=== PATIENT | female | born 1935 | race Caucasian/White ===

== ENCOUNTER 2020-03-20 07:28 | Day surgery (SDC) | payer MEDICARE ==
[2020-03-17 13:25] VITALS: BMI 25.7
[~2020-03-20 07:28] MED LIST: Fluorouracil 100 MG, Enoxaparin Sodium 25 MG, EPINEPHrine 0.3 MG in Ophthalmic Irrigati... IRR SCH
[2020-03-20] MEDS ORDERED: Cyclopentolate 1% Opth Drop 2 ML BOT ONE (07:46)
[2020-03-20] MEDS ORDERED: Phenylephrine 2.5% Ophth Soln 5 ML BOT ONE (07:46)
[2020-03-20] MEDS ORDERED: Fentanyl 100 MCG/2 ML VIAL ONE (09:05)
[2020-03-20] MEDS ORDERED: PROPOFOL 200 MG/20 ML VIAL ONE (09:22)
[2020-03-20] MEDS ORDERED: Triamcinolone 40 MG/ML VIAL ONE (09:22)
[2020-03-20] MEDS ORDERED: Enoxaparin Sodium 30 MG/0.3 ML SYRINGE ONE (09:22)
[2020-03-20] MEDS ORDERED: Indocyanine Green 25 MG/10 ML VIAL ONE (09:22)
[2020-03-20] MEDS ORDERED: Maxitrol 0.1% Opth Oint 3.5 GM TUBE ONE (09:22)
[2020-03-20] MEDS ORDERED: Lidocaine 4% PF 5 ML AMP ONE (09:22)
[2020-03-20] MEDS ORDERED: Bupivacaine PF 0.75% SDV 10 ML ONE (09:22)
--- NOTE | 2020-03-21 13:59 | OP ---
DATE OF PROCEDURE: 03/20/2020 PREOPERATIVE DIAGNOSIS: Epiretinal membrane, right eye. POSTOPERATIVE DIAGNOSIS: Epiretinal membrane, right eye. PROCEDURES PERFORMED: Pars plana vitrectomy and membrane peel, right eye. ANESTHESIA: Local with monitored anesthesia care. DESCRIPTION OF PROCEDURE: The patient was identified in the preoperative holding area. Appropriate informed consent for the planned surgical procedure on the right eye had been obtained. The patient was transported to the operative suite. Appropriate cardiopulmonary monitoring was established. Local anesthesia was obtained using retrobulbar modified Van Lint lid block using 50:50 mixture of 4% lidocaine and 0.75% bupivacaine. The patient was prepped and draped in usual sterile manner for ophthalmic surgery in the right eye. Lid speculum was placed in the right eye. A 27-gauge trocar was placed in the conjunctiva and sclera supratemporally, inferotemporally, and supranasally. Infusion line was placed inferotemporally. Light pipe vitreous cutter was inserted into the eye. Core vitrectomy was performed. At this time, a subretinal hemorrhage was noted superotemporally. Intra-ocular pressure was elevated and while the central retinal artery remained perfused and subretinal hemorrhage was watched, initially stopped progressing and the procedure was continued using the Indocyanine green dye was infused on the posterior pole x1 identifying the epiretinal membrane. This was elevated using membrane scraper and peeled across the macula using end gripping forceps. Indirect ophthalmoscopy was used to exam the retina at 360 degrees. No holes, breaks, or tears were identified. Prophylactic laser was placed. Behind the sclerotomy sites, again subretinal hemorrhage was inspected and noted to not be nonprogressing from earlier in the case. It was felt that this was stable. Trocars were removed. Retrobulbar Kenalog and subconjunctival Ancef were placed. Antibiotic ointment was placed. The eye was patched and shielded. The patient was taken to postop recovery unit in good condition having suffered no immediate perioperative complications. The patient was instructed to keep patch and shied on, avoid lifting or bending, and followup appointment with Dr. De Los Santos. Job ID: [id number]
== END 2020-03-20 11:20 | disposition home or self-care (01) ==
LOC: SDC 07:28
PROVIDERS: ATTEND Ophthalmology Retina Specialist
PROC: 08T43ZZ Resection of Right Vitreous, Percutaneous Approach (ICD-10-PCS; principal; 2020-03-20)
PROC: 08NE3ZZ Release Right Retina, Percutaneous Approach (ICD-10-PCS; 2020-03-20)
DX: H35.371 Puckering of macula, right eye (principal); I10 Essential (primary) hypertension; E78.5 Hyperlipidemia, unspecified; N28.9 Disorder of kidney and ureter, unspecified; Z79.82 Long term (current) use of aspirin; Z79.899 Other long term (current) drug therapy; Z88.0 Allergy status to penicillin; Z88.1 Allergy status to other antibiotic agents; Z88.2 Allergy status to sulfonamides; Z88.8 Allergy status to other drugs, medicaments and biological substances
CPT/HCPCS: J0171; J1650; J2001; J2704; J3010; J3301; J3490; J9190